=== PATIENT | female | born 1965 | race Caucasian/White ===

== ENCOUNTER → 2024-05-10 08:24 | Outpatient (REF) | payer BC, SELFPAY | LOC: WDC 08:24 | PROVIDERS: ATTENDING PHYSICIAN Obstetrics & Gynecology Gynecology; FAMILY PHYSICIAN Family Medicine | DX: Z12.31 Encounter for screening mammogram for malignant neoplasm of breast (principal) | CPT/HCPCS: 77063; 77067 ==

== ENCOUNTER 2025-04-29 21:58 | Emergency (ER) | payer BC, SELFPAY ==
[2025-04-29 22:08] VITALS: BP 102/68
[2025-04-29 23:52] VITALS: BP 93/63
[2025-04-29 23:54] VITALS: BP 93/63
[2025-04-30] VITALS: BP 95/60
--- NOTE | 2025-04-30 00:32 | ED.GENMED ---
History of Present Illness
General
Chief Complaint: Head Injury
Source: patient
Exam Limitations: none
Time Seen by Provider: 04/30/25 00:20
History of Present Illness
History of Present Illness:
See MDM
Past History
Past History
ED Past Medical History: Other (TBI)
ED Past Surgical History: None
Social History
Tobacco: Non-smoker
Alcohol: Occasional
Phy Exam
Physical Exam
Physical Exam:
See MDM
Course
Orders/Labs/Results
Orders:
Orders
04/29/25 22:17
CT Head W/o Iv Contrast Urgent
Comment:
Reason For Exam: head injury
Vital Signs
Initial and Last Documented VS:
Initial Vital Signs
Temp Pulse Resp BP Pulse Ox
97.5 F 63 20 102/68 98
04/29/25 22:08 04/29/25 22:08 04/29/25 22:08 04/29/25 22:08 04/29/25 22:08
Last Documented Vital Signs
Temp Pulse Resp BP Pulse Ox
97.5 F 65 20 93/63 98
04/29/25 22:08 04/29/25 23:54 04/29/25 22:08 04/29/25 23:54 04/29/25 23:45
Procedures
Laceration Closure
Right Anterior Scalp:
Status of Wound: clean
Size of Wound in cm: 3
Description of Wound Edges: sharp
Preparation: cleaned with soap & water
Anesthesia: 1% Lidocaine with epi
Revision/Debridement: routine- no revision
Wound exploration: explored to base- no FB
Type of Closure: single layer closure
Skin Closure Material: 4-0 vicryl
Number of sutures: 3
MDM/Problems Addressed
Differential Diagnosis Includes:
Note:
CHIEF COMPLAINT(S)
Laceration to the head following a fall.
HISTORY OF PRESENT ILLNESS
The patient is a 60-year-old female who presents with a head laceration following a fall. The incident involved alcohol use. The injury occurred during a minor fall earlier today. The patient denies any bleeding. Given the circumstances, the patient
was presented with two treatment options: jordy or dissolvable sutures. The patient opted for dissolvable sutures to avoid a follow-up visit for removal. The plan is to administer local anesthesia and place dissolvable stitches.
EXTERNAL RECORDS REVIEWED
A CT scan was reviewed and deemed to be normal, suggesting there is no significant concern for intracranial injury.
PHYSICAL EXAM
General: Alert, no acute distress. Visibly intoxicated
Skin: Warm, dry.
Head: 3 cm linear laceration to right scalp
Neck: Appears supple, trachea midline.
Eyes, Ears, Nose, Mouth, and Throat: Moist mucous membranes
Cardiovascular: No signs of cyanosis
Respiratory: Respirations are non-labored.
Abdomen: Non-distended
Musculoskeletal: No deformities
Neurological: No focal neurological deficit observed.
Psychiatric: Cooperative, appropriate mood and affect.
PLAN
The plan is to administer local anesthesia to the affected area and place dissolvable sutures for the head laceration. This allows for adequate wound closure without the need for follow-up removal.
DIFFERENTIAL DIAGNOSIS
- Traumatic laceration
- Alcohol intoxication
- Minor head injury
- Intracranial hemorrhage (ruled out by CT)
DISPOSITION
Discharge home after procedure with dissolvable sutures.
MEDICAL DECISION MAKING
- Complexity of Data Reviewed: Decisions were based on an external CT scan showing no intracranial abnormality.
- Data:
Category 1: External CT scan, which showed no abnormalities, confirming the absence of a serious head injury.
- Risk: The decision to use dissolvable sutures reduces the need for further follow-up, minimizing infection risk and complications associated with removal of jordy. Consideration of stitches was offered as the more convenient outpatient option.
PROCEDURES
Administration of local anesthesia and placement of dissolvable sutures for the head laceration.
Disposition:
SUMMARY OF ENCOUNTER
The patient, a 60-year-old female, presented to the emergency department after experiencing a minor fall, associated with alcohol use. She sustained a 3 cm laceration on the right side of her scalp. A CT scan of the head was performed and was
negative for any intracranial injury. The decision was made to place three dissolvable sutures after administering local anesthesia to close the laceration. The patient�s was present and confirmed comfort with the discharge plan.
DISPOSITION
Discharge.
ASSESSMENT
Traumatic laceration to the scalp in the context of alcohol intoxication following a fall.
PLAN
Patient will be discharged home with dissolvable sutures in place.
INDEPENDENT REVIEW OF LABS AND INTERPRETATION OF TESTS
- My independent interpretation of the CT scan of the head indicated no intracranial abnormalities.
PROCEDURES
Administration of local anesthesia followed by the placement of three dissolvable sutures for the right scalp laceration.
PATIENT EDUCATION AND COUNSELING
The patient was advised on wound care and the importance of monitoring for signs of infection such as increased redness, swelling, or discharge from the wound. She was also counseled on avoiding alcohol use to prevent further injuries and
complications.
MEDICAL DECISION MAKING
- Number and Complexity of Problems Addressed: Traumatic laceration, alcohol intoxication, minor head injury, intracranial hemorrhage (ruled out by CT).
- Data:
- Category 1: Reviewed external CT scan which showed no abnormalities, confirming the absence of a serious head injury.
- Category 2: Clinical information confirmed by the patients present at bedside.
- Risk: Consideration of Admission/Observation: Escalation of care including admission/observation was considered given the complexity and risk of the patients presenting complaint, exam findings, and her alcohol intoxication. However, ultimately I
feel the patient is safe for outpatient management with close follow-up. Reasoning: Work-up reassuring, does not reveal any acute life/organ threatening processes, patients symptoms well controlled upon reevaluation, reexamination is reassuring,
vitals are stable, patient agreeable with discharge, reliable for follow-up.
DIAGNOSIS
- Traumatic laceration to the scalp, unspecified part of head, initial encounter (S01.01XA)
- Alcohol intoxication, uncomplicated (F10.129)
*Pulse Oximetry
SaO2: 98
Oxygen Mode of Delivery: Room air
Patient hypoxic: no
*Critical Care Note
Total Time (30-74mins, 75-104mins- exclusive of procedures): Not Applicable
ED Attending Note
-
Portions of this chart may have been created with voice recognition software.� Occasional wrong word or��sound alike� substitutions may have occurred due to the inherent limitations of voice recognition software.
Discharge Plan
Departure
Patient Disposition: Home (Routine Discharge)
Date of Disposition: 04/30/25
Time of Disposition: 00:34
Patient with high blood pressure during this ER visit?: No
Discharge Problem:
Laceration of scalp
Instructions: Laceration Repair With Stitches (DC)
Prescriptions:
No Action
doxycycline hyclate 100 MG capsule
100 mg PO Q12 Qty: 10 1RF
methylprednisolone [Medrol (Eben)] 4 MG tablets,dose pack
4 tab PO . DIRECT Qty: 1 0RF
Referrals:
Aleksandr Gunter DO [Family Provider, Family Practice]
Activity Restrictions/Additional Instructions:
Please return for any worsening symptoms.
You may return at any time if you have further concerns.
Please follow up with your doctor at the first available appointment, preferably this week.
The 3 stitches I placed are dissolvable.
Thank you for choosing [facility].
Interventions
Interventions:
*Risk Screen - Suicide Last Done: 04/29/25 22:08
*General Assessment Last Done: 04/29/25 22:08
*Neglect/Abuse Screening Last Done: 04/29/25 22:08
*ED- Fall Risk Assessment Last Done: 04/29/25 22:08
*ED COVID-19 Vaccine History Last Done: 04/29/25 22:08
*ED Influenza Vaccine History Last Done: 04/29/25 22:08
ED- Neurological Assessment Last Done: 04/29/25 23:53
ED-Skin Assessment Last Done: 04/29/25 23:53
Discharge Date and Time
Print Language: MARSHALLESE
== END 2025-04-30 00:53 | disposition home or self-care (01) ==
LOC: EMR 21:58
PROVIDERS: EMERGENCY PHYSICIAN Student in an Organized Health Care Education/Training Program; FAMILY PHYSICIAN Family Medicine
DX: S01.01XA Laceration without foreign body of scalp, initial encounter (principal); W19.XXXA Unspecified fall, initial encounter
CPT/HCPCS: 99284; 12001; 70450

== ENCOUNTER → 2025-05-18 08:13 | Outpatient (REF) | payer BC, SELFPAY | LOC: WDC 08:13 | PROVIDERS: ATTENDING PHYSICIAN Obstetrics & Gynecology Gynecology; FAMILY PHYSICIAN Family Medicine | DX: Z12.31 Encounter for screening mammogram for malignant neoplasm of breast (principal) | CPT/HCPCS: 77063; 77067 ==